=== PATIENT | male | born 1995 | race Caucasian/White ===

== ENCOUNTER 2016-12-10 22:41 | Emergency (ER) | payer BC ==
[2016-12-10 22:52] VITALS: Ht 172.7 cm
[2016-12-10 22:56] VITALS: O2SAT 99
[2016-12-10 23:49] LABS: BLOOD UREA NITROGEN 18 mg/dl (7-18); BUN/CREATININE RATIO 14.8 (10-20); CALCIUM 8.5 mg/dl (8.5-10.1); CARBON DIOXIDE 25 mmol/L (21-32); CHLORIDE 109 mmol/L (98-107); GLUCOSE 94 mg/dl (70-99); POTASSIUM 3.5 mmol/L (3.5-5.1); SODIUM 149 mmol/L (136-145)
--- NOTE | 2016-12-11 07:05 | EMERGENCY ROOM VISIT NOTE ---
History First contact with patient: 22:51 Chief Complaint: ALCOHOL OVERDOSE Stated Complaint: ETOH Nursing Triage Summary: Patient arrives to ED via [facility] after being found in someone else's apartment. Owners of apartment called EMS as they don't know the patient. Patient denies injury/trauma. PAtient reports that he drank liquor, unknown amount. History of Present Illness The patient is a 21 year old male who presents to the Emergency Department via EMS for evaluation of an alcohol overdose. The patient was found sleeping in someone else's apartment. The owners of the department contacted EMS. The patient denies any injuries. He denies any falls or trauma. He reports drinking alcohol. He denies any other drug use. The patient takes no daily medications. He denies any pain rating his discomfort a 0/10. History of present illness is limited secondary to the patient's current state of intoxication. Review of Systems Review of systems Limited secondary to the patient's current state of intoxication. Social History Smoking Status: Current Every Day Smoker Smokeless Tobacco Use: No Alcohol Use: occasionally Drug Use: none Marital Status: single Housing Status: lives with roommate Occupation Status: [employer] student Current/Historical Medications No Active Prescriptions or Reported Meds Allergies Coded Allergies: No Known Allergies (Unverified , 12/10/16) Physical Exam Vital Signs Date Time Temp Pulse Resp B/P Pulse Ox O2 Delivery O2 Flow Rate FiO2 12/11/16 08:00 77 16 127/70 98 12/11/16 07:00 77 16 127/70 98 12/11/16 06:52 89 18 98 12/11/16 06:37 60 14 96/45 97 12/11/16 06:37 54 13 96/45 96 Room Air 12/11/16 06:35 75 12/11/16 06:13 60 14 95 12/11/16 05:59 97/43 12/11/16 05:43 71 16 95 12/11/16 05:13 58 15 96 12/11/16 05:08 58 15 95 12/11/16 04:59 100/36 12/11/16 04:38 60 15 95 12/11/16 04:08 67 14 95 12/11/16 04:03 62 14 95 12/11/16 03:59 89/34 12/11/16 03:33 61 16 94 12/11/16 03:03 59 15 95 12/11/16 02:59 102/39 12/11/16 02:33 70 15 95 12/11/16 02:04 66 12/11/16 02:03 76 21 97 12/11/16 01:59 120/57 12/11/16 01:33 89 18 98 12/11/16 01:28 128/82 12/11/16 01:10 101 21 12/11/16 00:05 153/56 12/10/16 23:11 92 12 100 12/10/16 22:56 99 Room Air 12/10/16 22:53 108 12/10/16 22:52 123 18 153/56 99 Room Air 12/10/16 22:46 153/56 Pain Rating (0-10): 0 Physical Exam VITALS - Vitals are noted on the nurse's note and reviewed by myself. Vital signs stable. GENERAL -21-year-old male, in no acute distress, nondiaphoretic, well-developed well-nourished. The patient is visibly intoxicated. SKIN - The skin was without obvious lacerations, abrasions, or rashes. There is no tenting of the skin. Capillary reflex less than 2 seconds. HEENT - Normocephalic, atraumatic. PERRLA. EOMI. Conjunctiva with mild injection without icterus. Tympanic membranes without erythema or effusion bilaterally no hemotympanum. External auditory canals are clear. Nares patent bilaterally. No epistaxis. Oropharynx without erythema or exudate. Uvula midline. Oral mucosal moist. No lymphadenopathy. Neck is supple without cervical spine tenderness. HEART - Regular rate and rhythm without murmurs gallops or rubs. Peripheral pulses 2+. LUNGS - Clear to auscultation bilaterally without wheezes, rales or rhonchi. ABDOMEN - Positive bowel sounds x 4. Normal tympanic percussion. Soft, nontender, without masses or organomegaly. MUSCULOSKELETAL - Gross motor function of the upper and lower extremities intact. NEUROLOGIC - The patient is visibly intoxicated. Medical Decision & Procedures Laboratory Results 12/10/16 23:00 Test 12/10/16 23:00 Anion Gap 15.0 mmol/L (3-11) Estimated GFR () 99.6 Estimated GFR (Non- 85.9 BUN/Creatinine Ratio 14.8 (10-20) Calcium Level 8.5 mg/dl (8.5-10.1) Ethyl Alcohol mg/dL 336.0 mg/dl (0-3) Procedure Patient was placed on the cardiac catheterization technologist and monitored throughout the entire extent of their stay. In addition, the patient's pulse oximetry was monitored throughout the entire stay. Any abnormalities or aberrancies were addressed appropriately. ED Course Patient was seen and evaluated by myself. Aspiration precautions were instituted and the patient was placed in the prone position. The patient was placed on the cardiac catheterization technologist and pulse oximetry was monitored throughout the entire stay in the emergency department. Labs were collected. Patient's medical alcohol was found to be elevated at 336.0 mg/dL. Patient was monitored in the emergency department for greater than 8 hours. The patient eventually was awoken and educated on today's visit. They were encouraged to refrain from heavy drinking. All labs and diagnostics were reviewed. Patient was discharged home in good condition. Medical Decision Given the patient's presentation and exam findings, I did elect to perform the above-mentioned workup. The patient presents today visibly intoxicated. The patient was monitored constantly throughout entire stay in the emergency setting. Medical alcohol level was elevated significantly at 336.0 mg/dL. After a lengthy stay in the Emergency Department the patient was deemed appropriate for discharge. Patient was discharged home in good condition. In the evaluation and treatment of this patient, the following differential diagnoses were considered: Hypoglycemia, Barbiturate Toxicity, Benzodiazepine Toxicity, Depression and Suicidality, Diabetic Ketoacidosis, Encephalitis, Ethylene Glycol Toxicity, Meningitis, Metabolic Acidosis, Opioid Toxicity, CVA, TIA, Intracranial Abnormality, Acute Psychosis, Amongst Others. Impression Primary Impression: Alcohol overdose Departure Information Dispostion Home / Self-Care Condition GOOD Prescriptions No Active Prescriptions or Reported Meds Referrals No Doctor, Assigned (PCP) Patient Instructions My [facility], [employer]: [employer] Students and Alcohol Related Visits Additional Instructions You've been seen in the emergency department today for an alcohol overdose. For pain control, you can use the following [id number] medicines (if >12 yo): - Regular strength (325mg/tab) Tylenol (acetaminophen) 2 tabs every 4-6 hours as needed. Do not exceed 12 tablets in a 24 hour period. Avoid taking more than 4 grams (4000 mg) of Tylenol per day. This includes any other sources of acetaminophen you may take on a regular basis. - Regular strength (200 mg/tab) Advil (ibuprofen) 1-2 tabs every 4-6 hours as needed. Do not exceed a dose of 3200 mg per day. Do not drive or operate heavy machinery for the remainder of the day. Follow-up with your family doctor as needed. Problem Qualifiers Primary Impression: Alcohol overdose Encounter type: initial encounter Injury intent: accidental or unintentional Qualified Codes: T51.91XA - Toxic effect of unspecified alcohol , accidental (unintentional), initial encounter
[2016-12-11 08:00] VITALS: BP 127/70; PULSE 77; O2SAT 98
== END 2016-12-11 08:00 | disposition home or self-care (01) ==
LOC: EDBD 22:41 → C.EDB 22:43
DX: T51.0X1A Toxic effect of ethanol, accidental (unintentional), initial encounter (principal); F17.210 Nicotine dependence, cigarettes, uncomplicated